=== PATIENT | female | born 1965 | race Caucasian/White ===

== ENCOUNTER → 2016-11-20 | Outpatient (CLI) | payer OTHER ==
[~2016-11-20] MED LIST: ERYOPO; PRENTAB26; SALI0.6517
--- NOTE | 2016-11-21 07:58 | MAMMOGRAPHY REPORT ---
BILATERAL DIGITAL SCREENING MAMMOGRAM TOMOSYNTHESIS WITH CAD: 11/20/2016 CLINICAL HISTORY: Routine screening. Patient has no complaints. TECHNIQUE: Breast tomosynthesis in addition to standard 2D mammography was performed. Current study was also evaluated with a Computer Aided Detection (CAD) system. COMPARISON: Comparison is made to exams dated: 01/12/2014 mammogram, 12/17/2012 ultrasound, 12/17/2012 mammogram, 06/13/2012 specimen, 06/13/2012 localization, and 06/03/2012 ultrasound biopsy - [facility]. BREAST COMPOSITION: The tissue of both breasts is heterogeneously dense, which may obscure small mas ses. FINDINGS: There is evidence of prior surgery in the left breast. A linear scar marker also overlies the posterior right breast on the MLO view. There are stable benign-appearing microcalcifications i n the left breast. No new suspicious mass, architectural distortion or cluster of microcalcification s is seen. IMPRESSION: ACR BI-RADS CATEGORY 2: BENIGN There is no mammographic evidence of malignancy. A 1 year screening mammogram is recommended. The pa tient will receive written notification of the results. Approximately 10% of breast cancers are not detected with mammography. A negative mammographic report should not delay biopsy if a clinically suggestive mass is present. Maile Cruz M.D. ay/:11/20/2016 16:06:12 Rnfa: Rhina Miranda, [facility] letter sent: Normal 1/2 BI-RADS Code: ACR BI-RADS Category 2: Benign
== END | disposition home or self-care (01) ==
LOC: C.MAMM 15:42
PROVIDERS: ATTEND Obstetrics & Gynecology
DX: Z12.31 Encounter for screening mammogram for malignant neoplasm of breast (principal)

== ENCOUNTER 2017-07-14 11:59 | Emergency (ER) | payer OTHER ==
[~2017-07-14] VITALS: Ht 172.7 cm; Wt 71.1 kg
[2017-07-14 12:01] VITALS: TEMP 36.7; Ht 172.7 cm; Wt 71.1 kg
[2017-07-14] MEDS ORDERED: RABIES IMMUNE GLOBULIN (HUMAN) 150 INTER.UNIT/ML 2 ML VIAL IM. ONE (12:30)
[2017-07-14] MEDS ORDERED: RABIES VACCINE (IMOVAX) HUMAN DIPL CELL 2.5 INTER.UNIT/ML SYR IM. ONE (12:30)
[2017-07-14] MEDS ORDERED: LYSI500C4 PO (12:39)
[2017-07-14] MEDS ORDERED: FEXO1TAB58 PO (12:39)
[2017-07-14] MEDS ORDERED: FLVHFA110 INH (12:39)
[2017-07-14] MEDS ORDERED: VNTHFA/IN INH (12:39)
--- NOTE | 2017-07-14 12:51 | EMERGENCY ROOM VISIT NOTE ---
History First contact with patient: 12:11 Chief Complaint: RABIES VACCINE Stated Complaint: BAT EXPOSURE History of Present Illness The patient is a 51 year old female who presents to the Emergency Room via private vehicle accompanied by family with complaints of "bad exposure". The patient states that she has had 2 episodes where a live bat was in the house. The first it was in the basement region, but the second time it was found in the kitchen. They are unsure if it was in the room while sleeping, but it is certainly possible. They do not think they have received any bites or injuries from the back. They note they are concerned about soheila rabies, therefore have presented to the emergency department for the potential rabies immunization series given that one or more bats were in the house that may have been in contact with them. Review of Systems A complete 6-point Review of Systems was discussed with the patient, with pertinent positives and negatives listed in the History of Present Illness. All remaining Review of Systems questions can be considered negative unless otherwise specified. Past Medical/Surgical History Asthma, bronchitis, pneumonia. Family History High blood pressure, cancer, lung disease. Social History Social History: Patient lives locally with family. Current/Historical Medications Scheduled Fexofenadine-Pseudoephedrine (Mami-D 24 Hour Allergy), 1 TAB PO DAILY Lysine (L-Lysine), Unknown Dose PO DAILY Scheduled PRN Albuterol Hfa (Ventolin Hfa), 2-4 PUFFS INH Q6H PRN for SOB/Wheezing Fluticasone Propionate (Flovent Hfa), 2 PUFFS INH BID PRN for SOB/Wheezing Miscellaneous Medications Sodium Chloride ([place] Nasal) Allergies Coded Allergies: No Known Allergies (Unverified , 07/14/17) Physical Exam Vital Signs Date Time Temp Pulse Resp B/P (MAP) Pulse Ox O2 Delivery O2 Flow Rate FiO2 07/14/17 14:20 65 16 138/89 100 Room Air 07/14/17 12:01 36.7 82 16 148/86 99 Physical Exam VITAL SIGNS - Vital signs and nursing notes were reviewed. Stable. GENERAL -51-year-old female appearing her stated age who is in no acute distress. Communicates well with provider and answers questions appropriately. SKIN - Without rashes. No meningeal or petechial rash. HEAD - NC/AT. EYES - PERRL with EOMI bilaterally. Sclera anicteric. EARS - No deformities of external structures noted on gross examination bilaterally. NOSE - Midline and without cyanosis. No epistaxis or purulent drainage noted. MOUTH/OROPHARYNX - Without perioral cyanosis. LUNGS - Chest wall symmetric without accessory muscle use, intercostals retractions, or central cyanosis. Normal vesicular breath sounds CTA B/L. No wheezes, rales, or rhonchi appreciated. CARDIAC - RRR with S1/S2. No murmur, rubs, or gallops appreciated. PSYCH - A&O, and cooperates fully with examiner. Pt is very pleasant and interacts well with examiner. Medical Decision & Procedures Medications Administered Medications (Trade) Dose Ordered Sig/Viki Route Start Time Stop Time Status Last Admin Dose Admin Rabies Vaccine Human Diploid Cell (Imovax Rabies) 2.5 interunit ONCE ONCE IM. 07/14/17 12:30 07/14/17 12:31 DC 07/14/17 13:08 2.5 INTERUNIT Rabies Immune Globulin (Imogam Rabies Inj) 1,422 interunit ONCE ONCE IM. 07/14/17 12:30 07/14/17 12:31 DC 07/14/17 13:12 1,422 INTERUNIT Medical Decision Patient was seen and evaluated as above in room D3. Review was performed of nursing notes and vital signs. After obtaining a thorough history and physical examination benefit versus risk of initiating the rabies immunization series was discussed. After discussing benefit versus risk in great detail patient elected to go through the series. They are given the Imovax and immunoglobulin. They were evaluated for >20 minutes and were discharged without trouble. There were educated thoroughly upon when to return. There educated upon worrisome symptoms which to return. The patient was educated upon management, had questions answered prior to discharge, and was discharged home in good condition. Impression Primary Impression: Exposure to bat without known bite Additional Impression: Encounter for prophylactic rabies immune globin Departure Information Dispostion Home / Self-Care Condition GOOD Referrals [facility] (PCP) Patient Instructions My [facility] Additional Instructions You were seen in the emergency department for the rabies vaccination series. Today's considered day 0. Please return on days 3, 7 and 14. (, and 28 of July) for subsequent injections. Please be sure to return on these days for this injection. It is very important that you come back on these specific days. Please watch for signs of infection to include redness, swelling or drainage. Please watch for signs of reaction to this to include fever, chills, hives, trouble breathing. If these occur Thank you for your time, and please return with any new/concerning symptoms. Problem Qualifiers
[2017-07-14 14:20] VITALS: BP 138/89; PULSE 65; O2SAT 100
== END 2017-07-14 14:15 | disposition home or self-care (01) ==
LOC: C.EDB 12:00 → C.EDD 14:15
DX: Z20.3 Contact with and (suspected) exposure to rabies (principal)

== ENCOUNTER 2017-07-17 09:51 | Emergency (ER) | payer OTHER ==
[~2017-07-17] VITALS: Ht 172.7 cm; Wt 71.8 kg
[~2017-07-17 09:51] MED LIST changes: -ERYOPO; +FEXO1TAB58 PO; +FLVHFA110 INH; +LYSI500C4 PO; -PRENTAB26; +VNTHFA/IN INH
[2017-07-17 10:01] VITALS: Ht 172.7 cm; Wt 71.8 kg
--- NOTE | 2017-07-17 10:38 | EMERGENCY ROOM VISIT NOTE ---
ED Visit Note First contact with patient: 10:15 CHIEF COMPLAINT: Rabies prophylaxis HISTORY OF PRESENT ILLNESS: This 51-year-old female patient presents to the emergency department, ambulatory, for their second rabies shot. There was a bat in the house from the end of June until beginning of July. She presented 3 days ago for her initial rabies vaccination and immunoglobulin. The patient has not had any complications from the previous injections. They deny any other complaints. REVIEW OF SYSTEMS: A 6 system review of systems was completed with positives and pertinent negatives listed in the HPI. ALLERGIES: None MEDICATIONS: Albuterol, Mami-D, Flovent, L-lysine PMH: Unchanged from previous visit. PHYSICAL EXAM: Vital Signs: Reviewed Nurse's notes, vital signs stable. GENERAL : This is a 51-year-old white female, in no acute distress, well-developed, well -nourished. HEAD: Atraumatic, without temporal or scalp tenderness. EYES: PERRLA, EOMI, no discharge or injection. SKIN: Normal. NEUROLOGICAL: Alert and cooperative. Sensory and motor functions grossly intact. EMERGENCY DEPARTMENT COURSE: I examined the patient. The patient was given Imovax 1ml IM. The patient was observed for 20 minutes with no reaction. The patient was discharged home in stable condition. I attest that I have personally reviewed the patient's current medication list. Patient was found to have normal blood pressure on screening and does not require follow-up. DIFFERENTIAL DIAGNOSIS: Previous prophylaxis, bite, cellulitis, infection, abscess, and others DIAGNOSIS: Rabies prophylaxis The chart was completed utilizing [employer] Speech voice recognition software. Grammatical errors, random word insertions, pronoun errors, and incomplete sentences are an occasional consequence of this system due to software limitations, ambient noise, and hardware issues. Any formal questions or concerns about the content, text, or information contained within the body of this dictation should be directly addressed to the provider for clarification. Current/Historical Medications Scheduled Fexofenadine-Pseudoephedrine (Mami-D 24 Hour Allergy), 1 TAB PO DAILY Lysine (L-Lysine), Unknown Dose PO DAILY Scheduled PRN Albuterol Hfa (Ventolin Hfa), 2-4 PUFFS INH Q6H PRN for SOB/Wheezing Fluticasone Propionate (Flovent Hfa), 2 PUFFS INH BID PRN for SOB/Wheezing Allergies Coded Allergies: No Known Allergies (Unverified , 07/14/17) Vital Signs Date Time Temp Pulse Resp B/P (MAP) Pulse Ox O2 Delivery O2 Flow Rate FiO2 07/17/17 11:00 36.8 72 17 124/78 97 07/17/17 10:01 36.8 74 18 124/78 98 Room Air Medications Administered Medications (Trade) Dose Ordered Sig/Viki Route Start Time Stop Time Status Last Admin Dose Admin Rabies Vaccine Human Diploid Cell (Imovax Rabies) 2.5 interunit ONCE ONCE IM. 07/17/17 10:45 07/17/17 10:46 DC 07/17/17 10:54 2.5 INTERUNIT Departure Information Impression Primary Impression: Exposure to bat without known bite Additional Impression: Encounter for repeat administration of rabies vaccination Dispostion Home / Self-Care Condition GOOD Referrals [facility] (PCP) Patient Instructions My [facility], Rabies Additional Instructions You were seen in the emergency department today for a repeat rabies vaccination. Today is day 3. Please continue to follow the schedule, returning on day 7 and day 14 for follow-up vaccinations. Ibuprofen(Motrin, Advil) may be used for fever or pain. Use 600mg every six hours as needed. Take with food. Avoid using more than 2400mg in a 24 hour period. Do not use 2400mg per day for more than three consecutive days without physician direction. Prolonged inappropriate use can lead to stomach upset or ulcers. (AND/OR) Acetaminophen(Tylenol) may be used for fever or pain. Use 1000mg every six hours as needed. Avoid using more than 3000mg in a 24 hour period. Monitor for signs of infection or reaction to vaccination. Return to the emergency department for any concerning symptoms. Problem Qualifiers
[2017-07-17] MEDS ORDERED: RABIES VACCINE (IMOVAX) HUMAN DIPL CELL 2.5 INTER.UNIT/ML SYR IM. ONE (10:45)
[2017-07-17 11:00] VITALS: BP 124/78; PULSE 72; TEMP 36.8; O2SAT 97
== END 2017-07-17 11:01 | disposition home or self-care (01) ==
LOC: C.EDB 09:53 → C.EDC 11:01
DX: Z20.3 Contact with and (suspected) exposure to rabies (principal); Z23 Encounter for immunization; Z79.899 Other long term (current) drug therapy

== ENCOUNTER 2017-07-21 10:54 | Emergency (ER) | payer OTHER ==
[~2017-07-21] VITALS: Ht 172.7 cm; Wt 72.1 kg
[~2017-07-21 10:54] MED LIST changes: -SALI0.6517
[2017-07-21 11:03] VITALS: BP 132/80; PULSE 68; TEMP 36.8; O2SAT 97; Ht 172.7 cm; Wt 72.1 kg
[2017-07-21] MEDS ORDERED: RABIES VACCINE (IMOVAX) HUMAN DIPL CELL 2.5 INTER.UNIT/ML SYR IM. ONE (11:30)
--- NOTE | 2017-07-21 21:36 | EMERGENCY ROOM VISIT NOTE ---
History First contact with patient: 11:11 Chief Complaint: RABIES VACCINE REPEAT VISIT Stated Complaint: 3RD RABIES VACCINE History of Present Illness The patient is a 51 year old female who presents to the Emergency Room for a third Imovax immunization. The patient denies any adverse reactions to the injection. Review of Systems Noncontributory and unchanged from previous visits Past Medical/Surgical History Medical Problems: (1) Anxiety State Nos (2) Asthma, Unspecified (3) Asthma, Unspecified (4) Benign Neoplasm Breast (5) Hyperlipidemia Nec/Nos (6) Missed Family History FH: breast cancer Social History Smoking Status: Never Smoker Alcohol Use: occasionally Marital Status: single Housing Status: lives with family Occupation Status: employed Current/Historical Medications Scheduled Fexofenadine-Pseudoephedrine (Mami-D 24 Hour Allergy), 1 TAB PO DAILY Lysine (L-Lysine), Unknown Dose PO DAILY Scheduled PRN Albuterol Hfa (Ventolin Hfa), 2-4 PUFFS INH Q6H PRN for SOB/Wheezing Fluticasone Propionate (Flovent Hfa), 2 PUFFS INH BID PRN for SOB/Wheezing Physical Exam Vital Signs Date Time Temp Pulse Resp B/P (MAP) Pulse Ox O2 Delivery O2 Flow Rate FiO2 07/21/17 11:03 36.8 68 18 132/80 97 Room Air Physical Exam CONSTITUTIONAL: Healthy and well nourished. HEENT: No scleral icterus or conjunctival injection. INTEGUMENTARY: No rash or other significant dermatologic conditions noted. NEUROLOGIC: No focal neurologic deficits noted. Medical Decision & Procedures Medications Administered Medications (Trade) Dose Ordered Sig/Viki Route Start Time Stop Time Status Last Admin Dose Admin Rabies Vaccine Human Diploid Cell (Imovax Rabies) 2.5 interunit ONCE ONCE IM. 07/21/17 11:30 07/21/17 11:31 DC 07/21/17 11:36 2.5 INTERUNIT ED Course Patient history and physical exam were performed. Nurse's notes were reviewed. Vital signs were reviewed and were normal. The patient was administered Imovax IM without adverse reaction. The patient will return in 1 week for a final Imovax injection, returning sooner with any adverse reaction to today's injection. The patient denied any pain at the time of discharge. Medical Decision Blood Pressure Screening Patient's blood pressure: Normal blood pressure Impression Primary Impression: Rabies, need for prophylactic vaccination against Departure Information Dispostion Home / Self-Care Condition GOOD Forms HOME CARE DOCUMENTATION FORM, IMPORTANT VISIT INFORMATION Patient Instructions My [facility] Additional Instructions Return next Saturday for your final Imovax injection
== END 2017-07-21 11:46 | disposition home or self-care (01) ==
LOC: C.EDB 10:55 → C.EDD 11:46
DX: Z23 Encounter for immunization (principal); Z20.3 Contact with and (suspected) exposure to rabies; F41.9 Anxiety disorder, unspecified; J45.909 Unspecified asthma, uncomplicated; E78.5 Hyperlipidemia, unspecified

== ENCOUNTER 2017-07-28 12:22 | Emergency (ER) | payer OTHER ==
[~2017-07-28] VITALS: Ht 172.7 cm; Wt 71.2 kg
[2017-07-28 12:28] VITALS: BP 118/79; PULSE 69; TEMP 36.6; O2SAT 98; Ht 172.7 cm; Wt 71.2 kg
[2017-07-28] MEDS ORDERED: RABIES VACCINE (IMOVAX) HUMAN DIPL CELL 2.5 INTER.UNIT/ML SYR IM. ONE (12:45)
--- NOTE | 2017-07-28 12:47 | EMERGENCY ROOM VISIT NOTE ---
ED Visit Note First contact with patient: 12:34 CHIEF COMPLAINT: His last rabies vaccine HPI: This 51year-old female presents to ER for her last rabies vaccine. The patient was initially evaluated here 14 days ago when they found a bat in their house and was there while they were sleeping. The patient has tolerated prior vaccines without any difficulty. REVIEW OF SYSTEMS: 3 system review was performed and was negative unless stated otherwise in history of present illness. PMH: The patient is healthy; asthma SOCIAL HISTORY: Patient lives with family PHYSICAL EXAM: Vital Signs: Were reviewed reviewed Nurse's notes. GENERAL: 15- year-old white female appears in no acute distress. MENTAL Status: Alert and oriented 3. EMERGENCY DEPARTMENT COURSE: The patient was given Imovax . The patient was discharged home in stable condition. DIAGNOSIS: Post exposure rabies prophylaxis DISCHARGE INSTRUCTIONS no further vaccine necessary. Current/Historical Medications Scheduled Fexofenadine-Pseudoephedrine (Mami-D 24 Hour Allergy), 1 TAB PO DAILY Lysine (L-Lysine), Unknown Dose PO DAILY Scheduled PRN Albuterol Hfa (Ventolin Hfa), 2-4 PUFFS INH Q6H PRN for SOB/Wheezing Fluticasone Propionate (Flovent Hfa), 2 PUFFS INH BID PRN for SOB/Wheezing Allergies Coded Allergies: No Known Allergies (Unverified , 07/28/17) Vital Signs Date Time Temp Pulse Resp B/P (MAP) Pulse Ox O2 Delivery O2 Flow Rate FiO2 07/28/17 12:28 36.6 69 15 118/79 98 Room Air Departure Information Referrals [facility] (PCP) Patient Instructions My [facility]
== END 2017-07-28 13:15 | disposition home or self-care (01) ==
LOC: C.EDB 12:23 → C.EDD 13:15
DX: Z23 Encounter for immunization (principal); Z20.3 Contact with and (suspected) exposure to rabies; J45.909 Unspecified asthma, uncomplicated

== ENCOUNTER → 2017-11-28 | Outpatient (CLI) | payer OTHER ==
--- NOTE | 2017-11-28 15:07 | MAMMOGRAPHY REPORT ---
BILATERAL DIGITAL SCREENING MAMMOGRAM TOMOSYNTHESIS WITH CAD: 11/28/2017 CLINICAL HISTORY: Routine screening. TECHNIQUE: Breast tomosynthesis in addition to standard 2D mammography was performed. Current study w as also evaluated with a Computer Aided Detection (CAD) system. COMPARISON: Comparison is made to exams dated: 11/20/2016 mammogram, 01/12/2014 mammogram, 05/15/2012 ma mmogram, 05/15/2011 mammogram, 05/12/2010 mammogram, and 04/22/2009 mammogram - [facility] er. BREAST COMPOSITION: The tissue of both breasts is heterogeneously dense, which may obscure small mass es. FINDINGS: No suspicious masses, calcifications, or areas of architectural distortion are noted in either breast . There has been no significant interval change compared to prior exams. Scattered bilateral benign-a ppearing calcifications are not significantly changed. There is stable postsurgical architectural di stortion within the left lateral breast. A linear scar marker also overlies the right breast. IMPRESSION: ACR BI-RADS CATEGORY 2: BENIGN There is no mammographic evidence of malignancy. A 1 year screening mammogram is recommended.( [id number]) The patient will receive written notification of the results. Some breast cancers are not detected with mammography. A negative mammographic report should not kian y biopsy if a clinically suggestive mass is present. Nadine Galarza M.D. ah/:11/28/2017 12:15:17 Front Office Secretary: RT Susan(Shelby)(M), [facility] letter sent: Normal 1/2 BI-RADS Code: ACR BI-RADS Category 2: Benign
== END | disposition home or self-care (01) ==
LOC: C.MAMM 10:03
PROVIDERS: ATTEND Obstetrics & Gynecology
DX: Z12.31 Encounter for screening mammogram for malignant neoplasm of breast (principal)